=== PATIENT | female | born 1970 | race Caucasian/White ===

== ENCOUNTER → 2018-07-12 | Outpatient (CLI) | payer OTHER ==
[~2018-07-12] MED LIST: DEPAKOTE500 MG PO; DIOVAN PO; ENJUVIA; ENJUVIA1.25 MG PO; FLUZONE 2045 MCG/011; HYDROCHLOROTHIA25 M1 PO; MECLIZINE 25 MG25 M1; OXYCONTIN10 M1 PO; OXYIR5 MG PO; PERCOCET 5-3251 EACH PO; PNEUMOVAX25 MCG/0.5; PREMARIN1.25 MG PO; VALIUM5 MG PO; ZOFRAN4 MG PO; ZOMIG PO
== END ==
LOC: M.CT 10:59
DX: K76.89 Other specified diseases of liver (principal)

== ENCOUNTER → 2018-09-14 | Outpatient (CLI) | payer OTHER | LOC: M.LAB 03:40 | DX: Z01.812 Encounter for preprocedural laboratory examination (principal) ==